=== PATIENT | female | born 1985 | race Caucasian/White ===

== ENCOUNTER 2017-01-13 15:05 | Outpatient (CLI) | payer BC, OTHER | END 2017-01-13 17:05 | disposition home or self-care (01) | LOC: GENOP 15:05 | DX: O99.89 Other specified diseases and conditions complicating pregnancy, childbirth and the puerperium (principal); R10.9 Unspecified abdominal pain; R19.7 Diarrhea, unspecified; Z3A.37 37 weeks gestation of pregnancy | CPT/HCPCS: 59025; 81001 ==

== ENCOUNTER 2017-01-24 15:47 | Inpatient (IN) | payer OTHER ==
[~2017-01-24] VITALS: Ht 160 cm; Wt 85.3 kg
[2017-01-25 09:49] LABS: RED BLOOD COUNT 4.21 M/UL (4.00-5.10); WHITE BLOOD COUNT 15.3 K/UL (4.5-11.0)
[2017-01-26 03:01] LABS: HEMOGLOBIN 10.9 gm/dl (12.3-15.3)
== END 2017-01-27 19:53 | disposition home or self-care (01) | DRG 765 ==
LOC: GENOP 15:47 → OB 01-25 09:47
PROVIDERS: Obstetrics & Gynecology; ADMIT Obstetrics & Gynecology
PROC: 3E0R3CZ (ICD-10-PCS; 2017-01-25)
PROC: 10D00Z1 Extraction of Products of Conception, Low, Open Approach (ICD-10-PCS; principal; 2017-01-25 11:03)
DX: O32.8XX0 Maternal care for other malpresentation of fetus, not applicable or unspecified (principal); O99.413 Diseases of the circulatory system complicating pregnancy, third trimester; Z03.74 Encounter for suspected problem with fetal growth ruled out; Z3A.39 39 weeks gestation of pregnancy; Z37.0 Single live birth; Z53.29 Procedure and treatment not carried out because of patient's decision for other reasons; I49.9 Cardiac arrhythmia, unspecified; I45.6 Pre-excitation syndrome; O26.23 Pregnancy care for patient with recurrent pregnancy loss, third trimester; Z87.440 Personal history of urinary (tract) infections; Z88.5 Allergy status to narcotic agent; Z88.8 Allergy status to other drugs, medicaments and biological substances; Z90.49 Acquired absence of other specified parts of digestive tract; Z98.890 Other specified postprocedural states; Z83.2 Family history of diseases of the blood and blood-forming organs and certain disorders involving the immune mechanism; Z82.49 Family history of ischemic heart disease and other diseases of the circulatory system; Z80.3 Family history of malignant neoplasm of breast; Z83.49 Family history of other endocrine, nutritional and metabolic diseases
CPT/HCPCS: 36415; 81001; 82800; 85014; 85018; 85025; C9113; J0690; J2250; J2300; J2405; J2590; J2765; J3010; J3430; J7120